=== PATIENT | male | born 1990 | race American Indian/Alaskan Native ===

== ENCOUNTER 2018-03-22 13:32 | Emergency (ER) | payer SELFPAY ==
[2018-03-22 13:38] VITALS: BP 110/51
[2018-03-22] MEDS ORDERED: DUONEB *Not for PRN Use IH ONE (15:08)
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
== END 2018-03-22 16:25 | disposition home or self-care (01) ==
LOC: ED 13:32
DX: J45.909 Unspecified asthma, uncomplicated (principal); F17.200 Nicotine dependence, unspecified, uncomplicated; Z91.09 Other allergy status, other than to drugs and biological substances
CPT/HCPCS: 94640; 96372; 99282; J2930

== ENCOUNTER 2018-05-28 07:45 | Emergency (ER) | payer SELFPAY ==
[2018-05-28 07:51] VITALS: BP 111/66
[2018-05-28] MEDS ORDERED: MOTRIN PO ONE (07:55)
[2018-05-28] MEDS ORDERED: CLEOCIN PO ONE (07:55)
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
[2018-05-28] MEDS ORDERED: NORCO 5/325 PO ONE (08:01)
== END 2018-05-28 08:40 | disposition home or self-care (01) ==
LOC: ED 07:45
DX: K02.9 Dental caries, unspecified (principal); K05.10 Chronic gingivitis, plaque induced; J45.909 Unspecified asthma, uncomplicated; F17.200 Nicotine dependence, unspecified, uncomplicated; Z91.048 Other nonmedicinal substance allergy status
CPT/HCPCS: 99282

== ENCOUNTER 2018-12-01 19:17 | Emergency (ER) | payer SELFPAY | END 2018-12-01 19:52 | disposition left against medical advice (07) | LOC: ED 19:17 | DX: R10.30 Lower abdominal pain, unspecified (principal); Z53.21 Procedure and treatment not carried out due to patient leaving prior to being seen by health care provider ==

== ENCOUNTER 2018-12-03 15:08 | Emergency (ER) | payer OTHER ==
--- NOTE | 2018-12-03 15:18 | Emergency Department Report ---
Blank Doc - Documentation Documentation: this is a 28-year-old male that presents with testicular pain and some swelling. Stated had some dysuria last week. This initial assessment/diagnostic orders/clinical plan/treatment(s) is/are subject to change based on patient's health status, clinical progression and re-assessment by fellow clinical providers in the ED. Further treatment and workup at subsequent clinical providers discretion. Patient/guardians urged not to elope from the ED as their condition may be serious if not clinically assessed and managed. Initial orders include: 1- Patient sent to [facility] for further evaluation and treatment 2- US 3- Doppler US
[2018-12-03 16:17] LABS: Bilirubin,Urine NEG (Negative); Blood,Urine NEG (Negative); Color,Urine Yellow (Yellow); Mucus,Urine FEW /HPF; Protein,Urine <15 mg/dL mg/dL (Negative); RBC,Urine < 1.0 /HPF (0.0-6.0); Urobilinogen,Urine < 2.0 mg/dL (<2.0)
[2018-12-03 18:21] VITALS: BP 105/84
--- NOTE | 2018-12-03 18:21 | Ultrasound Report ---
PROCEDURE: US TESTICULAR DOPPLER COMP TECHNIQUE: Ultrasound scrotum HISTORY: testicular pain and swelling COMPARISONS: No prior studies are submitted for comparison FINDINGS: Right testicle is 5.1 x 2.0 x 4.0 cm. There is normal echogenicity within the testicle with normal fl ow on pulsed and color Doppler evaluation. No evidence for epididymal enlargement. Left testicle is 4.7 x 2.2 x 3.4 cm. It demonstrates normal echotexture. There is normal flow on Dopp ler evaluation. There is a small to moderate left hydrocele. This appears somewhat complex with echogenicity present. The left epididymis does not appear enlarged. Note is made of a shadowing mobile echogenic focus within the left hemiscrotum 0.6 cm most consistent with a scrotolith IMPRESSION: Left hydrocele which appears complex. Consideration given to pyocele or hematocele. Scrotolith observed within the left hemiscrotum. This document is electronically signed by Trever Henderson MD., December 03 2018 06:18:54 PM ET
--- NOTE | 2018-12-03 18:30 | Emergency Department Report ---
ED Male HPI - General Chief complaint: Urogenital-Male Stated complaint: GROIN PAIN Time Seen by Provider: 12/03/18 15:17 Source: patient Mode of arrival: Ambulatory Limitations: No Limitations - History of Present Illness Initial comments: 28-year-old -[place] male who 20 department complaining of testicular pain to his right testicle radiated to the inguinal region on the past 6 days. Reports no fever, chills, sweats, has been having occasional dysuria. Reports no no hematuria, no hematemesis, no hematochezia. He denies any trauma. States that he's been having this pain. He thought he may have had a hernia, but has not visualized. MD Complaint: testicle pain, testicle swelling Location: right testicle, left testicle Radiation: none Severity: mild Quality: dull Consistency: constant Improves with: none Worsens with: none swelling. denies: discharge, rash, urinary retention, blood in urine, fever, nausea/vomiting, incontinence - Related Data Sexually active: No Previous Rx's Medication Instructions Recorded Last Taken Type ALBUTEROL Inhaler (OR & NICU) 2 puff IH Q4HR PRN #1 inhalation 08/22/18 Unknown Rx [ProAir HFA Inhaler] predniSONE [Deltasone] 20 mg PO QDAY #15 tab 08/22/18 Unknown Rx Doxycycline [Vibramycin CAP] 100 mg PO BID #28 capsule 12/03/18 Unknown Rx Ketorolac [Toradol] 10 mg PO Q6H PRN #15 tablet 12/03/18 Unknown Rx Allergies Allergy/AdvReac Type Severity Reaction Status Date / Time No Known Allergies Allergy Verified 08/22/18 15:24 ED Review of Systems ROS: Stated complaint: GROIN PAIN Other details as noted in HPI Constitutional: denies: chills, fever Eyes: denies: eye pain, eye discharge, vision change ENT: denies: ear pain, throat pain Respiratory: denies: cough, shortness of breath, wheezing Cardiovascular: denies: chest pain, palpitations Endocrine: no symptoms reported Gastrointestinal: denies: abdominal pain, nausea, diarrhea Genitourinary: denies: urgency, dysuria Musculoskeletal: denies: back pain, joint swelling, arthralgia Skin: denies: rash, lesions Neurological: denies: headache, weakness, paresthesias Psychiatric: denies: anxiety, depression Hematological/Lymphatic: denies: easy bleeding, easy bruising ED Past Medical Hx - Past Medical History Previous Medical History?: Yes Hx Asthma: Yes - Surgical History Past Surgical History?: No - Social History Smoking Status: Current Every Day Smoker Substance Use Type: None - Medications Home Medications: Home Medications Medication Instructions Recorded Confirmed Last Taken Type ALBUTEROL Inhaler (OR & NICU) 2 puff IH Q4HR PRN #1 inhalation 08/22/18 Unknown Rx [ProAir HFA Inhaler] predniSONE [Deltasone] 20 mg PO QDAY #15 tab 08/22/18 Unknown Rx Doxycycline [Vibramycin CAP] 100 mg PO BID #28 capsule 12/03/18 Unknown Rx Ketorolac [Toradol] 10 mg PO Q6H PRN #15 tablet 12/03/18 Unknown Rx ED Physical Exam - General Limitations: No Limitations General appearance: alert, in no apparent distress - Head Head exam: Present: atraumatic, normocephalic - Eye Eye exam: Present: normal appearance, PERRL, EOMI Pupils: Present: normal accommodation - ENT ENT exam: Present: normal exam, mucous membranes moist - Neck Neck exam: Present: normal inspection, full ROM - Respiratory Respiratory exam: Present: normal lung sounds bilaterally. Absent: respiratory distress, wheezes, accessory muscle use, decreased breath sounds, prolonged expiratory - Cardiovascular Cardiovascular Exam: Present: regular rate, normal rhythm. Absent: systolic murmur, diastolic murmur, rubs, gallop - GI/Abdominal GI/Abdominal exam: Present: soft, normal bowel sounds - Rectal Rectal exam: Present: deferred - exam: Present: scrotal swelling, vertical testicular lie, circumcision. Absent: urethral discharge External exam: Present: other (tenderness to the right testicle approximately located. No mass is appreciated. No inguinal lymphadenopathy. No rashes is noted. No penile discharge.) - Extremities Exam Extremities exam: Present: normal inspection - Back Exam Back exam: Present: normal inspection - Neurological Exam Neurological exam: Present: alert, oriented X3 - Psychiatric Psychiatric exam: Present: normal affect, normal mood - Skin Skin exam: Present: warm, dry, intact, normal color. Absent: rash ED Course Vital Signs 12/03/18 12/03/18 12/03/18 15:17 17:41 18:21 Temperature 98.1 F 98.3 F Pulse Rate 79 77 Respiratory 16 15 16 Rate Blood Pressure 131/82 Blood Pressure 105/84 [Right] O2 Sat by Pulse 100 98 Oximetry ED Medical Decision Making - Radiology Data Ultrasound report shows a possible complex hydrocele to the left testicle and a sacral with as well. Plan is to treat with Bicillin. Follow up with for further evaluation and treatment recommendations. Critical care attestation.: If time is entered above; I have spent that time in minutes in the direct care of this critically ill patient, excluding procedure time. ED Disposition Clinical Impression: Hydrocele Disposition: DC-01 TO HOME OR SELFCARE Is pt being admited?: No Does the pt Need Aspirin: No Condition: Stable Instructions: Testicle Pain (ED) Referrals: PRIMARY CARE, [Primary Care Provider] - 3-5 Days KAYLAN SOLIS MD [Staff Physician] - 3-5 Days CARRIE HERNANDEZ MD [Staff Physician] - 3-5 Days CASI LIZ MD [Referring] - 3-5 Days MILAGRO NARANJO MD [Referring] - 3-5 Days
[2018-12-03] MEDS ORDERED: ZITHROMAX PO STA (18:34)
[2018-12-03] MEDS ORDERED: ROCEPHIN IM STA (18:34)
[2018-12-03] MEDS ORDERED: XYLOCAINE 1% MPF 5 mL INFILTRATI ONE (18:34)
== END 2018-12-03 19:09 | disposition home or self-care (01) ==
LOC: ED 15:08 → MERGE 15:08 → ED 19:09
DX: N43.3 Hydrocele, unspecified (principal); J45.909 Unspecified asthma, uncomplicated; F17.200 Nicotine dependence, unspecified, uncomplicated
CPT/HCPCS: 81001; 93975

== ENCOUNTER 2018-12-21 18:58 | Emergency (ER) | payer SELFPAY ==
[2018-12-21 19:21] VITALS: BP 126/78
--- NOTE | 2018-12-21 19:39 | Emergency Department Report ---
Blank Doc - Documentation Documentation: Pt c/o flu like symptoms to include fever(resolved), sweats, body aches, and dry cough x 2 days. no diarrhea or abdominal pain
--- NOTE | 2018-12-21 22:14 | XRay Report ---
PROCEDURE: XR CHEST ROUTINE 2V TECHNIQUE: PA and lateral chest radiographs were obtained. HISTORY: fever, coryza and cough COMPARISONS: None. FINDINGS: Heart: Normal. Mediastinum/Vessels: Normal. Lungs/Pleural space: Normal. Bony thorax: No acute osseous abnormality. IMPRESSION: Normal examination. This document is electronically signed by Rolf Lancaster MD., December 21 2018 10:12:12 PM ET
== END 2018-12-21 19:45 ==
LOC: ED 18:58
DX: M79.18 Myalgia, other site (principal); R05 Cough; Z53.21 Procedure and treatment not carried out due to patient leaving prior to being seen by health care provider
CPT/HCPCS: 71046

== ENCOUNTER 2019-01-28 22:38 | Emergency (ER) | payer SELFPAY ==
[2019-01-28 23:41] VITALS: BP 104/58
[2019-01-29 00:37] LABS: Bilirubin,Urine NEG (Negative); Blood,Urine NEG (Negative); Color,Urine Yellow (Yellow); Mucus,Urine FEW /HPF; Protein,Urine <15 mg/dL mg/dL (Negative); Urobilinogen,Urine < 2.0 mg/dL (<2.0); WBC,Urine < 1.0 /HPF (0.0-6.0)
--- NOTE | 2019-01-29 01:56 | Ultrasound Report ---
PROCEDURE: US TESTICULAR DOPPLER COMP TECHNIQUE: Real-time diaz-scale and color flow Doppler sonography in multiple planes of the scrotum, testicles, and epididymes was performed. Velocity spectral waveform analysis and color Doppler imagi ng of the arterial inflow and venous outflow of the testicles was performed with image documentation. HISTORY: testicular pain COMPARISONS: None . FINDINGS: RIGHT TESTICLE: Size: 5 x 2.6 x 3.6 cm . Appearance: Normal size and echotexture . Arterial blood flow: Normal spectral waveforms, flow velocities and color flow images.. Venous blood flow: Normal spectral waveforms and color flow images. Right epididymis: Normal size and echotexture . Hydrocele: None . LEFT TESTICLE Size: 4.6 x 3.5 x 3.5 cm . Appearance: Normal size and echotexture . Arterial blood flow: Normal spectral waveforms, flow velocities and color flow images.. Venous blood flow: Normal spectral waveforms and color flow images. Left epididymis: Normal size and echotexture . Hydrocele: None . IMPRESSION: Normal Examination . This document is electronically signed by Andi Blancas MD., Jan 29 2019 01:54:11 AM ET
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
== END 2019-01-29 03:40 | disposition home or self-care (01) ==
LOC: ED 22:38
DX: N50.811 Right testicular pain (principal); K08.89 Other specified disorders of teeth and supporting structures; J45.909 Unspecified asthma, uncomplicated; F17.200 Nicotine dependence, unspecified, uncomplicated; Z91.018 Allergy to other foods
CPT/HCPCS: 81001; 93975

== ENCOUNTER 2019-06-21 23:25 | Emergency (ER) | payer SELFPAY ==
[2019-06-21 23:47] VITALS: BP 128/76
[2019-06-22] MEDS ORDERED: AZITHROMYCIN 1 GM ORAL PWDR PACKET PO ONE (00:11)
[2019-06-22] MEDS ORDERED: LIDOCAINE-MPF (1%) 10 MG/1 ML VIAL 5 ML INFILTRATI ONE (00:11)
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
[2019-06-22 01:05] LABS: Bilirubin,Urine NEG (Negative); Blood,Urine NEG (Negative); Color,Urine Yellow (Yellow); Mucus,Urine FEW /HPF
[2019-06-22 01:10] LABS: WBC,Urine > 182.0 /HPF (0.0-6.0)
--- NOTE | 2019-06-25 17:53 | ED Positive Culture Call Back ---
Positive Culture Review - Culture review Culture results: positive for gonorrhea . Patient was treated. - Pt call back decision Pt call back decision: No action required
== END 2019-06-22 02:23 | disposition home or self-care (01) ==
LOC: ED 23:25
DX: N34.2 Other urethritis (principal); Z20.2 Contact with and (suspected) exposure to infections with a predominantly sexual mode of transmission; J45.909 Unspecified asthma, uncomplicated; F17.200 Nicotine dependence, unspecified, uncomplicated; Z79.899 Other long term (current) drug therapy
CPT/HCPCS: 81001; 87591; 96372; 99283; J0696

== ENCOUNTER 2022-01-29 10:20 | Emergency (ER) | payer SELFPAY ==
[2022-01-29 10:49] VITALS: BP 110/74
[2022-01-29] MEDS ORDERED: IPRATROPIUM/ALBUTEROL SULFATE 3 ML AMPUL.NEB IH ONE (13:40)
[2022-01-29] MEDS ORDERED: predniSONE 20 MG TAB PO ONE (13:40)
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
== END 2022-01-29 16:49 | disposition home or self-care (01) ==
LOC: ED 10:20
DX: J45.901 Unspecified asthma with (acute) exacerbation (principal); Z91.09 Other allergy status, other than to drugs and biological substances; Z79.899 Other long term (current) drug therapy; F17.200 Nicotine dependence, unspecified, uncomplicated
CPT/HCPCS: 94640; 99282

== ENCOUNTER 2022-02-01 09:59 | Emergency (ER) | payer SELFPAY | END 2022-02-01 10:00 | disposition left against medical advice (07) | LOC: ED 09:59 | DX: R53.81 Other malaise (principal); Z53.21 Procedure and treatment not carried out due to patient leaving prior to being seen by health care provider ==